=== PATIENT | male | born 1965 | race Caucasian/White ===

== ENCOUNTER → 2024-09-22 13:44 | Outpatient (REF) | payer BC, SELFPAY | LOC: EMG 13:44 | PROVIDERS: ATTENDING PHYSICIAN Neurological Surgery; FAMILY PHYSICIAN Internal Medicine | DX: D49.7 Neoplasm of unspecified behavior of endocrine glands and other parts of nervous system (principal); M79.651 Pain in right thigh; R20.0 Anesthesia of skin; Z98.1 Arthrodesis status; D49.2 Neoplasm of unspecified behavior of bone, soft tissue, and skin | CPT/HCPCS: 95886; 95910 ==